=== PATIENT | female | born 1995 | race Caucasian/White ===

== ENCOUNTER 2017-01-15 19:02 | Emergency (ER) | payer OTHER ==
--- NOTE | ~2017-01-15 | CR282 ---
[facility] A Service of [facility] & [facility] RADIOLOGY TEXT RESULTS PATIENT: CRISTIAN ESCAMILLA LOCATION: [facility] : [birth year] UNIT #: [id number] AGE: [address]: Kun Mar SEX: F ORDER DR: [id number] [facility] [address] [place], [place] [address] [id number] E MR#: [id number] Acc #: [id number] NAME: CRISTIAN ESCAMILLA : 1995 SEX: F STUDY DATE/TIME: 01/15/2017 20:15 UNIT: [facility] ROOM: STUDY DESCRIPTION: CR Wrist Min 3 View Rt Attending Physician: Kun Mar P.A.-C. Ordering Physician: Ed Eran Holcomb M.D. Primary Care Physician: Roger Dowell M.D. MEDICAL IMAGING REPORT This report is preliminary unless electronic signature is present EXAM Right wrist series, 01/15/2017 HISTORY Pain. Struck car door with hand several times Sunday. FINDINGS AP lateral and oblique radiographs of the right wrist are presented. Normal bony mineralization and alignment. No fracture. No traumatic malalignment. No soft tissue defect, subcutaneous air or radiodense foreign body. Dictated by... Kun Swartz M.D. THIS IS AN ELECTRONICALLY VERIFIED REPORT Kun Swartz M.D. at 01/18/2017 8:26 AM ELVIN/surendra TD: 01/16/2017 00:06 JOB #: [id number] MEDICAL IMAGING REPORT Page 1 of 1 COPY
--- NOTE | ~2017-01-15 | CR142 ---
[facility] A Service of [facility] & [facility] RADIOLOGY TEXT RESULTS PATIENT: CRISTIAN ESCAMILLA LOCATION: [facility] : [birth year] UNIT #: [id number] AGE: [address]: Kun Mar SEX: F ORDER DR: [id number] [facility] [address] [place] [address] [place], [place] [address] [id number] E MR#: [id number] Acc #: [id number] NAME: CRISTIAN ESCAMILLA : 1995 SEX: F STUDY DATE/TIME: 01/15/2017 20:14 UNIT: [facility] ROOM: STUDY DESCRIPTION: CR Hand Min 3 Views Rt Attending Physician: Kun Mar P.A.-C. Ordering Physician: Baljinder Holcomb M.D. Primary Care Physician: Roger Dowell M.D. MEDICAL IMAGING REPORT This report is preliminary unless electronic signature is present EXAM Right hand series, 01/15/2017 HISTORY Pain. Struck car door with hand several times Sunday. Right hand and wrist pain and swelling. FINDINGS AP, lateral and oblique radiographs of the right hand are presented. Study is limited by ring artifact overlying the proximal phalanx of the third digit on all views and the second, fourth and fifth digits on the lateral view. In addition there is digital flexion and overlap on the lateral view. No fracture is seen. No traumatic malalignment. No soft tissue defect, subcutaneous air or radiodense foreign body. If the patient has ongoing symptoms, given limitations of this examination, followup imaging would be recommended. Dictated by... Kun Swartz M.D. THIS IS AN ELECTRONICALLY VERIFIED REPORT Kun Swartz M.D. at 01/18/2017 8:26 AM ELVIN/surendra TD: 01/16/2017 00:03 JOB #: [id number] MEDICAL IMAGING REPORT Page 1 of 1 COPY
[~2017-01-15 19:02] MED LIST: ALLEGRA PO; ALLFEN400 MG PO; AMBIEN10 MG PO; AMOXICILLIN PO; IBUPROFEN600 MG PO; LORTAB 5/500 TA1 TA1 PO; LORTAB 5/500 TA1 TA2 PO; NAPROSYN375 MG PO; PREDNISONE50 MG PO; SINGULAIR; ZITHROMAX PO; ZYRTEC; ZYRTEC10 M2 PO
== END 2017-01-15 21:15 | disposition home or self-care (01) ==
LOC: CFTX 19:02 → CED 19:02 → CFTX 20:37
DX: S63.501A Unspecified sprain of right wrist, initial encounter (principal); S60.221A Contusion of right hand, initial encounter; F17.210 Nicotine dependence, cigarettes, uncomplicated; W22.03XA Walked into furniture, initial encounter; Y92.009 Unspecified place in unspecified non-institutional (private) residence as the place of occurrence of the external cause
CPT/HCPCS: 29125; 73110; 73130; 99283